=== PATIENT | female | born 1950 | race Caucasian/White ===

== ENCOUNTER 2016-08-14 17:18 | Observation (INO) | payer OTHER ==
[~2016-08-14] VITALS: Ht 165.1 cm; Wt 50.0 kg
--- NOTE | ~2016-08-14 | OP ---
PATIENT NAME: REINA ELIZABETH MEDICAL RECORD: [id number] :54 LOCATION:D.M2 D.2124 ADMISSION DATE:08/14/16 SURGEON: BRYAN DOVE MD DATE OF OPERATION: 08/15/2016 PROCEDURES: Left heart catheterization as well as 4-vessel arteriography. FINDINGS: Left ventriculography 30-degree GOMES view: Normal wall motion, normal systolic function. CORONARY ANATOMY: LEFT MAIN: Left main is free of disease. LAD: LAD is free of disease in the diagonal system. CIRCUMFLEX: Circumflex has diffuse 80% stenosis at the bend of take-off of 2 very small OMs. RIGHT CORONARY ARTERY: Shows no significant stenosis. IMPRESSION: Single-vessel disease involving the circumflex. PLAN: Intervention of this vessel momentarily. DESCRIPTION: A 5-Guamanian sheath was exchanged for a 6-Guamanian sheath. An XB LAD guide catheter provided excellent guide catheter support followed by a 300 cm Brashear XT wire was placed across the tightly occluded circumflex down this portion of this vessel. Initial stent deployed was a 3.0 x 18 Integrity [id number] stent inflated up to 12 atmospheres. Repeat angiography showed a questionable spasm versus residual lesion proximal to the original stent and therefore, a 3.0 x 12 mm Integrity second stent was inflated up to 14 atmospheres for 45 seconds. Final injection shows excellent resolution of an 80% diffuse stenosis, no significant residual. YENNY flow was 3 throughout the procedure. Integrilin was used in the case. Plavix was loaded in the lab. FOUR-VESSEL ARTERIOGRAPHY: LEFT SYSTEM: Left common carotid shows smooth-walled vessel without significant disease. Left internal carotid is smooth-walled vessel without significant disease. Left external carotid is smooth-walled vessel without significant disease. RIGHT SYSTEM: Right common carotid is a smooth-walled vessel, no significant disease. Right internal carotid is smooth-walled vessel, no significant disease. Right external carotid smooth-walled vessel, no significant disease. IMPRESSION: No significant evidence of carotid artery disease causing symptomology. TRANSINT:[id number] Voice Confirmation ID: [id number] DOCUMENT ID: [id number] OPERATIVE REPORT [id number] REINA ELIZABETH BRYAN DOVE MD CC: [id number] DICTATION DATE: 08/15/16 1150 SEAMER OPERATOR: 08/15/16 2215 DIS IN 08/15/[address] [facility] [address] [place] [address]
--- NOTE | ~2016-08-14 | HP ---
PATIENT: REINA ELIZABETH MEDICAL RECORD: [id number] ACCOUNT: [id number] LOCATION:[address] : 54 ADMISSION DATE: 08/14/16 HISTORY AND PHYSICAL EXAMINATION HISTORY OF PRESENT ILLNESS: A 66-year-old lady with known history of coronary artery disease. She has a strong family history of coronary artery disease. Apparent history of dyslipidemia in the past, longstanding smoking history, probable COPD clinically, presented with chest pressure and tightness. Additionally, she had visual change, left arm tingling consistent consistent with amaurosis, symptoms resolved spontaneously then recurreda and she presented in the ER. We are asked to see her concerning her cardiovascular status. PAST MEDICAL HISTORY: History of probable obstructive pulmonary disease and no other major illness. ALLERGIES: None known. SOCIAL HISTORY: No set exercise program. She is physically active, smokes about a pack a day. No illicit drug use. Has been under stress with son being injured in a shooting in July. REVIEW OF SYSTEMS: The patient reports easy bruising but reports no swollen glands. The patient reports no fever, no night sweats, no significant weight gain, no significant weight loss. No significant exercise tolerance. The patient reports no dry eyes, no irritation, no vision change. Patient reports no difficulty hearing and no ear pain. Patient reports no frequent nose bleeds or nose and sinus problems. Patient reports on arm pain on exertion. No shortness of breath while lying down. No history of heart murmur. Patient reports no cough, no wheezing or coughing up blood. Patient reports no abdominal pain, no vomiting. Normal appetite. No diarrhea and not vomiting blood. No nausea and no constipation. Patient reports no incontinence. No difficulty urinating. No hematuria. No increased frequency. Patient reports no muscle aches. No weakness, no arthralgias, no back pain. No swelling of the extremities. Patient reports no abnormal mole, no jaundice, no rashes. Reports no loss of consciousness. No weakness and no numbness. No seizures, dizziness, or headaches. The patient reports no depression, no sleep disturbance, feeling safe in a relationship and no alcohol abuse. Patient reports on fatigue. Reports no runny nose or sinus pressure. No itching, no hives, and no frequent sneezing. PHYSICAL EXAMINATION: GENERAL: Pleasant female in no acute distress, appears stated age. VITAL SIGNS: 119/62, pulse 69 regular. HEENT: Normocephalic, atraumatic. NECK: No bruits noted. HEART: Regular. LUNGS: Lungs russ are clear with prolonged expiratory phase, no active wheezing. ABDOMEN: Soft, nontender. EXTREMITIES: Pulse 2+. There is no edema. NEUROLOGIC: Grossly intact. DIAGNOSTIC DATA: ECG without acute change. HISTORY AND PHYSICAL [id number] REINA ELIZABETH IMPRESSION: Possible transient ischemic attack symptomatology accelerated angina. PLAN: For angiography, intervention based on above. TRANSINT:[id number] Voice Confirmation ID: [id number] DOCUMENT ID: [id number] BRYAN DOVE MD CC: [id number] DICTATION DATE: 08/15/16908 DISTRICT EXTENSION SERVICE AGENT: 08/15/16 1053 ADM [place] [id number] [place] [id number]
--- NOTE | ~2016-08-14 | HEMODYNAMI ---
PATIENT:REINA ELIZABETH MEDICAL RECORD: [id number] : 54 [facility] D.2[id number] ADMISSION DATE: 08/14/16 Generatedon:08/15/201611:42 Patient name: RENIA ELIZABETH Patient #: [id number] SSN: : 1950 Date of study: 08/15/2016 Page: Of Hemodynamic Procedure Report Patient Data Patient Demographics Procedure consent was obtained First Name: REINA Gender: Female Last Name: GLENN : 1950 Middle Initial: M Age: 66 year(s) Patient #: [id number] Race: Unknown Additional ID: [id number] Contact details Address: [address] [place] [address] State: [place] City: [facility] Zip code: [address] Past Medical History Allergies: No known allergies Admission Admission Data Admission Date: 08/14/2016 Admission Time: 19:30 Admit Source: Emergency Insurance Payor: Medicare department Room #: D.2124 Height (in.): 65 BSA: 1.53 (m2) Height (cm.): 165.1 BMI: 18.3 (kg/m2) Weight (lbs.): 110 Weight (kg.): 49.9 Lab Results Lab Result Date: 08/15/2016 Lab Result Time: 0:00 Biochemistry Name Units Result Min Max CK-MB ng/ml 0.6 --(*---)-- 0 3.6 Troponin l ng/ml 0.017 --(-*--)-- 0 0.06 Procedure Procedure Types Cath Procedure Diagnostic Procedure [facility] w/Coronaries PCI Procedure Coronary Stent Initial Miscellaneous Procedures Moderate Sedation up to 30 minutes Peripheral Cath Diagnostic Procedure Cath Peripheral Four Vessel Arteriogram Procedure Description Procedure Date Procedure Date: 08/15/2016 Procedure Start Time: 11:16 Procedure End Time: 11:42 Procedure Staff Name Function Bunny Malin MD Performing Physician Leo Smith RT Scrub Darryl Sheppard RN Nurse Rosita Butler RT Monitor Procedure Data Cath Procedure Fluoroscopy Diagnostic fluoroscopy Total fluoroscopy Time: 5.8 time: 5.8 min min Diagnostic fluoroscopy Total fluoroscopy dose: 393 dose: 393 mGy mGy Contrast Material Contrast Material Type Amount (ml) Isovue 300 160 Entry Location Entry Primary Successful Side Size Upsize Upsize Entry Closure Succes sful Closure Location (Fr) 1 (Fr) 2 (Fr) Remarks Device Remarks Femoral Right 5 Fr 6 Fr Exoseal artery Short Estimated blood loss: 10 ml Diagnostic catheters Device Type Used For End Catheter Placement Cordis 5Fr JL 4.0 Left Coronary Catheter (MP) Angiography Cordis 5Fr 3DRC Catheter Right Coronary (MP) Angiography Cordis 5Fr 3DRC Catheter Cervical carotid (MP) (common) arteriography Cordis 5Fr 3DRC Catheter Cervical carotid (MP) (common) arteriography Cordis 5Fr Pigtail LV Angiography Catheter (MP) Procedure Complications No complications Procedure Medications Medication Administration Route Dosage Oxygen NC 2 l/min Heparin Flush Bag added to field 2 bags (1000units/500ml NS) 0.9% NaCl I.V. 100 ml/hr Fentanyl I.V. 50 mcg Versed I.V. 1 mg Fentanyl I.V. 50 mcg Versed I.V. 1 mg Heparin Bolus I.V. 4000 units Integrilin (Bolus I.V. 4.5 ml 2mg/ml) Integrilin (Bolus wasted 5.5 ml 2mg/ml) Plavix P.O. 600 mg Hemodynamics Rest BSA: 1.53 (m2) HGB: 13.9 (g/dl) O2 Consumption: Estimated: 140.76 (ml/min) O2 Co nsumption indexed: Estimated:92 (ml/min/m) Heart Rate: 66 (bpm) Pressure Samples Time Site Value (mmHg) Purpose Heart Use Rate(bpm) 11:24 LV 111/-9,15 EDP 69 Gradients Valve Time Site Site Mean SEP/DFP Peak To Heart Use 1 2 (mmHg) (sec/min) Peak Rate (mmHg) (bpm) Aortic 11:24 LV AO 72 Snapshots Pre Cath Intra NCS Post Cath Vital Signs Time Heart Resp SPO2 NIBP (mmHg) Rhythm Pain Sedation Rate (ipm) (%) Status Level (bpm) 11:06:35 66 18 99 135/69(115) NSR 0 (11) 10(A) , No pain 11:10:47 64 16 96 116/63(87) NSR 0 (11) 10(A) , No pain 11:14:53 63 18 96 109/63(90) NSR 0 (11) 9(A) , No pain 11:18:57 64 16 97 106/58(83) NSR 0 (11) 9(A) , No pain 11:23:00 65 17 96 94/53(75) NSR 0 (11) 9(A) , No pain 11:26:58 70 17 96 105/63(85) NSR 0 (11) 9(A) , No pain 11:31:04 64 18 96 93/46(76) NSR 0 (11) 9(A) , No pain 11:35:05 65 16 96 105/51(80) NSR 0 (11) 9(A) , No pain 11:39:09 63 17 97 107/50(81) NSR 0 (11) 9(A) , No pain Medications Time Medication Route Dose Verified Delivered Reason Notes Effectiveness by by 11:04:06 Oxygen NC 2 Darryl Darryl Per physician l/min Silver Sheppard RN RN 11:04:15 Heparin Flush added 2 Darryl Darryl used for Bag to bags Silver Sheppard RN procedure (1000units/500ml field RN NS) 11:04:24 0.9% NaCl I.V. 100 Darryl Darryl Per physician ml/hr Silver Sheppard RN RN 11:10:44 Fentanyl I.V. 50 Darryl Darryl for sedation mcg Silver Sheppard RN RN 11:10:52 Versed I.V. 1 mg Darryl Darryl for sedation Silver Sheppard RN RN 11:17:32 Fentanyl I.V. 50 Darryl Darryl for sedation mcg Silver Sheppard RN RN 11:17:39 Versed I.V. 1 mg Darryl Darryl for sedation Silver Sheppard RN RN 11:26:37 Heparin Bolus I.V. 4000 Darryl Darryl for units Silver Sheppard RN anticoagulation RN 11:26:47 Integrilin I.V. 4.5 Darryl Darryl for (Bolus 2mg/ml) ml Silver Sheppard RN antiplatelet RN therapy 11:26:55 Integrilin wasted 5.5 Darryl Darryl for (Bolus 2mg/ml) ml Silver Sheppard RN antiplatelet RN therapy 11:40:42 Plavix P.O. 600 Darryl Andrews for mg Silver Sheppard RN antiplatelet RN therapy Procedure Log Time Note 10:40:29 Darryl Sheppard RN sent for patient. Start room use. 10:49:31 Time tracking: Regular hours 10:49:35 Plan of Care:Hemodynamics will remain stable., Cardiac rhythm will remain stable., Comfort level will be maintained., Respiratory function will remain adequate., Patient/ family verbilizes understanding of procedure., Procedure tolerated without complication., Recovers from procedure without complications.. 10:50:46 Patient Height : 165.1 cm 10:50:49 Patient Weight : 49.9 kg 10:51:04 H&P Date Dictated: 08/15/2016 Within 30 days and on chart.. 10:53:45 Procedure type changed to Cath procedure, Diagnostic procedure, LHC, LHC w/Coronaries, PCI procedure, Coronary Stent Initial, Miscellaneous Procedures, Moderate Sedation up to 30 minutes, Peripheral Cath Diagnostic Procedure, Cath Peripheral, Four Vessel Arteriogram 10:54:12 Admit Source: Emergency department 10:54:26 Insurance Payor : Medicare 10:56:52 Patient received from PCU to CCL 2 Alert and oriented. Tansferred to table in Supine position. 10:56:53 Warm blankets applied, and cynthia hugger turned on for patient comfort. 10:56:54 Correct patient and procedure confirmed by team. 10:56:55 Signed procedure consent form obtained from patient. 10:56:56 ECG and BP/O2 sat monitors applied to patient. 10:56:57 Full Disclosure recording started 11:04:06 Oxygen 2 l/min NC was administered by Darryl Sheppard RN; Per physician; 11:04:15 Heparin Flush Bag (1000units/500ml NS) 2 bags added to field was administered by Darryl Sheppard RN; used for procedure; 11:04:24 0.9% NaCl 100 ml/hr I.V. was administered by Darryl Sheppard RN; Per physician; 11:04:28 Vital chart was started 11:04:32 Rhythm: sinus rhythm 11:04:35 Pre-procedure instructions explained to patient. 11:04:36 Pre-op teaching completed and patient verbalized understanding. 11:04:40 Family in patients room. 11:04:41 Patient NPO since Midnight. 11:05:22 Patient allergic to No known allergies 11:05:25 Is the patient allergic to Iodine/contrast media? No. 11:05:27 Is patient on blood thinner?No 11:05:30 Patient diabetic? No. 11:05:44 Previous problem with sedation/anesthesia? No ? 11:05:46 Snore? No 11:05:48 Sleep apnea? No 11:05:49 Deviated septum? No 11:05:50 Opens mouth fully? Yes 11:05:51 Sticks out tongue? Yes 11:05:53 Airway obstruction? No ? 11:05:55 Dentures? No ? 11:05:58 Pre procedure: right dorsailis pedis pulse 2+ Normal; easily identifiable; not easily obliterated 11:06:00 Patient pain scale 0/10 ?. 11:06:13 IV patent on arrival in left forearm with 0.9% NaCl at O. 11:07:02 Lab Result : Creatinine 0.7 mg/dl 11:07:02 Lab Result : Hemoglobin 13.9 g/dl 11:07:58 Lab Result : CK-MB 0.6 ng/ml 11:07:58 Lab Result : Troponin l 0.017 ng/ml 11:08:01 Lab results completed and on chart. 11:08:04 Right groin area was prepped with chlora-prep and draped in sterile fashion 11:08:05 Alarms reviewed by R. N. 11:08:05 Sharps counted by scrub and verified by R.N. 11:08:08 Use device set Femoral Dx 11:08:09 Acist Syringe opened to sterile field. 11:08:09 Bag Decanter opened to sterile field. 11:08:10 Medline Cath Pack opened to sterile field. 11:08:11 Terumo 5Fr Speer Sheath opened to sterile field. 11:08:11 St Osvaldo 260cm J .035 wire opened to sterile field. 11:08:12 Acist Hand Control opened to sterile field. 11:08:12 Acist Manifold opened to sterile field. 11:08:13 Diagnostic Infinity 5Fr Multipack catheter opened to sterile field. 11:08:13 Tegaderm 4 x 4 opened to sterile field. 11:09:43 Baseline sample Acquired. 11:09:58 Final Timeout: patient, procedure, and site verified with staff and physician. All members of the team are in agreement. 11:10:00 Right groin site verified by team. 11:10:03 Physical assessment completed. ASA score P 2 - A patient with mild systemic disease as per Bunny Malin MD. 11:10:06 Sedation plan: IV Moderate Sedation Versed, Fentanyl 11:10:44 Fentanyl 50 mcg I.V. was administered by Darryl Sheppard RN; for sedation; 11:10:52 Versed 1 mg I.V. was administered by Darryl Sheppard RN; for sedation; 11:16:43 Procedure started. 11:16:47 Local anesthetic to right femoral artery with Lidocaine 2% by Bunny Malin MD.INITIAL ACCESS ONLY 11:16:54 Zero performed for pressure channel P1 11:17:09 A 5 Fr sheath was inserted into the Right Femoral artery 11:17:16 A Cordis 5Fr JL 4.0 Catheter (MP) was advanced over the wire and used for Left Coronary Angiography. 11:17:32 Fentanyl 50 mcg I.V. was administered by Darryl Sheppard RN; for sedation; 11:17:39 Versed 1 mg I.V. was administered by Darryl Sheppard RN; for sedation; 11:19:37 Catheter removed. 11:20:20 A Cordis 5Fr 3DRC Catheter (MP) was advanced over the wire and used for Right Coronary Angiography. 11:21:27 A Cordis 5Fr 3DRC Catheter (MP) was advanced over the wire and used for Cervical carotid (common) arteriography.Left 11:22:34 A Cordis 5Fr 3DRC Catheter (MP) was advanced over the wire and used for Cervical carotid (common) arteriography.Right 11:22:40 Catheter removed. 11:22:50 A Cordis 5Fr Pigtail Catheter (MP) was advanced over the wire and used for LV Angiography. 11:24:17 LV gram done using GOMES 11:24:56 Injector settings: Ml/sec: 10, Volume: 20, 11:24:57 LV hemodynamics recorded. 11:24:59 Catheter removed. 11:25:09 Sheath upsized to a 6 Fr Short. 11:26:03 Sobresalen BasixCompak Inflation Kit opened to sterile field. 11:26:06 Joaquin Kabetogama 300cm 0.014 guide wire opened to sterile field. 11:26:07 Terumo 6Fr Speer Sheath opened to sterile field. 11:26:08 Medtronic Launcher 6Fr EBU 3.5 guide catheter opened to sterile field. 11:26:37 Heparin Bolus 4000 units I.V. was administered by Darryl Sheppard RN; for anticoagulation; 11:26:47 Integrilin (Bolus 2mg/ml) 4.5 ml I.V. was administered by Darryl Sheppard RN; for antiplatelet therapy; 11:26:55 Integrilin (Bolus 2mg/ml) 5.5 ml wasted was administered by Darryl Sheppard RN; for antiplatelet therapy; 11:27:05 6 Fr EBU 3.5 guide catheter was inserted over the wire 11:28:54 Kabetogama wire advanced. 11:31:50 Inflation Number: 1 A Medtronic Integrity 3.0 X 18 stent was prepped and advanced across the Mid CX. The stent was deployed at 12 TOPHER for 0:32 (min:sec). 11:33:30 Stent catheter was removed intact over wire. 11:36:58 Inflation Number: 2 A Medtronic Integrity 3.0 X 12 stent was prepped and advanced across the Mid CX. The stent was deployed at 14 TOPHER for 0:27 (min:sec). 11:37:28 Stent catheter was removed intact over wire. 11:37:28 Wire removed. 11:37:29 Guide catheter removed. 11:37:39 Sheath removed intact; hemostasis achieved with Exoseal to the Right Femoral artery. 11:37:47 Cordis 6Fr Exoseal opened to sterile field. 11:37:49 Procedure ended.(Physican Out) 11:38:04 Fluoroscopy time 05.80 minutes. 11:38:13 Fluoroscopy dose: 393 mGy 11:38:13 Flurop Dose total: 393 11:38:23 Contrast amount:Isovue 300 160ml. 11:38:24 Sharps counted by scrub and verified by R.N. 11:38:25 Insertion/operative site no bleeding no hematoma. 11:38:28 Post-op/insertion site Right Femoral artery dressed using a 4 x 4 and Tegaderm. 11:38:32 Post right femoral artery:stable, clean and dry 11:38:34 Post Procedure Pulses reassessed and unchanged 11:38:36 Post-procedure physical assessment completed. ASA score P 2 - A patient with mild systemic disease as per Bunny Malin MD. 11:38:39 Post procedure rhythm: unchanged. 11:38:42 Estimated blood loss: 10 ml 11:38:43 Post procedure instruction explained to patient.Patient verbalizes understanding. 11:38:43 Patient needs reinforcement of post procedure teaching. 11:39:15 Procedure Complication : No complications 11:39:18 See physician's report for complete and final results. 11:40:42 Plavix 600 mg P.O. was administered by Darryl Sheppard RN; for antiplatelet therapy; 11:41:53 Procedure and supply charges have been captured, reviewed, submitted and are correct. 11:41:55 Vital chart was stopped 11:41:56 Report given to PCU. 11:42:01 Patient transfered to PCU with Bed. 11:42:25 Procedure ended. 11:42:25 Full Disclosure recording stopped 11:42:30 End room use (Document Last) Intervention Summary Intervention Notes Time ActionType Lesion and Equipment Action# Pressure Duration Attributes Used 11:31:50 Place stent Mid CX Medtronic 1 12 00:32 Integrity 3.0 X 18 stent 11:36:58 Place stent Mid CX Medtronic 2 14 00:28 Integrity 3.0 X 12 stent Device Usage Item Name Manufacture Quantity Catalog Hospital Part Current Minimal Lot# / Number Charge Number Stock Stock Serial# Code Acist Acist 1 24931 268138 924563 057764 20 Syringe Medical Systems Inc Bag Microtek 1 2002S 679943 89769 401510 5 [employer] Medline Cardinal 1 [id number] 578982 63747 392500 5 Cath Pack Health Terumo 5Fr Terumo 1 [id number] 360112 645759 203414 [address] Osvaldo 1 377371 198097 458778 401520 30 260cm J .035 wire Acist Hand Acist 1 82879 008301 696322 188699 5 Control Medical Systems Inc Acist Acist 1 76824 350908 734100 526150 5 Manifold Medical Systems Inc Diagnostic Cardinal 1 [id number] 474954 90474 715325 30 Systancia 5Fr Multipack catheter Tegaderm 4 3M 1 1626W 957544 868004 167529 5 x 4 Cordis 5Fr Cardinal 1 771894 5 JL 4.0 Health Catheter (MP) Cordis 5Fr Cardinal 1 994983 5 3DRC Health Catheter (MP) Cordis 5Fr Cardinal 1 218158 5 Pigtail Health Catheter (MP) [facility] 1 [id number] 089954 013043 539644 15 BasixCompak Medical Inflation Kit Joaquin Joaquin 1 [id number] 100490 862574 717327 1 Kabetogama Vascular 300cm 0.014 guide wire Terumo 6Fr Terumo 1 [id number] 245281 499194 124788 40 Speer Sheath Medtronic Medtronic 1 [id number] 578774 98474 167849 3 Launcher 6Fr EBU 3.5 guide catheter Medtronic Medtronic 1 [id number] 820798 118569 1 [id number] Integrity 3.0 X 18 stent Medtronic Medtronic 1 [id number] 289767 529248 3 [id number] Integrity 3.0 X 12 stent Cordis 6Fr Cardinal 1 [id number] 613424 040283 041677 10 [facility] Cosyforyou Signature Audit Palmer Stage Time Signature Unsigned Intra-Procedure 08/15/2016 Rosita 11:42:43 AM Counts RT(R) Signatures Monitor : Rosita Signature : Counts RT Date : Time : [place] [address] [place] [address]
[2016-08-14 18:14] LABS: BASOPHILS 0.3 % (0-2); HEMATOCRIT 41.8 % (36.0-48.0); HEMOGLOBIN 13.9 g/dL (12-16); IMMATURE GRANULOCYTES 0.2 % (0-5); LYMPHOCYTES 25.8 % (15-50); MCH 31.4 pg (26.0-34.0); MCHC 33.3 g/dL (31.0-37.0); MCV 94.4 fL (80.0-100.0); MEAN PLATELET VOLUME 9.9 fL (7.4-10.4); MONOCYTES 8.2 % (2-11); NEUTROPHILS 64.5 % (40-80); PLATELET COUNT 267 10x3/uL (130-400); RBC 4.43 10x6/uL (4.00-5.40); WBC 10.1 10x3/uL (4.8-10.8)
[2016-08-14 18:30] LABS: ALBUMIN 3.7 g/dL (3.4-5.0); ALKALINE PHOSPHATASE 88 U/L (46-116); ALT (SGPT) 17 U/L (10-68); BILIRUBIN - TOTAL 0.24 mg/dL (0.2-1.3); CALC OSMOLALITY 282 mosm/kg (275-300); CALCIUM 8.6 mg/dL (8.5-10.1); CARBON DIOXIDE 26.6 mmol/L (21.0-32.0); CHLORIDE - SERUM 107 mmol/L (98-107); CREATININE - SERUM 0.7 mg/dL (0.6-1.3); GLUCOSE 122 mg/dL (74-106); POTASSIUM - SERUM 3.5 mmol/L (3.5-5.1); PROTEIN - SERUM 7.3 g/dL (6.4-8.2); SODIUM 142 mmol/L (136-145); UREA NITROGEN 10 mg/dL (7-18); eGFR NON AFRICAN AMERICAN 89 mL/min (90-120)
[2016-08-14 18:41] LABS: CKMB 0.7 U/L (0.0-3.6); CREATINE KINASE 52 UL (21-215)
[2016-08-14 18:43] LABS: TROPONIN-I < 0.017 ng/mL (0.000-0.060)
--- NOTE | 2016-08-14 20:44 | NUR ---
RECIEVED TO ROOM 2123 FROM ER VIA . A&O, RESPERATIONS EVEN ON RA. PLACED ON TELEMETRY, 76 SR. IV TO LEFT HAND SL, SITE CLEAN AND DRY. PT C/O HEAD ACHE, INFORMED HER THAT I WILL HAVE TO CALL THE PHYSICIAN TO GET PAIN MEDS ORDERED. PAGE OUT TO DR DOVE. MULTIPLE FAMILY MEMEBERS AT BED SIDE, BED LOW, CL IN REACH.
[2016-08-14 21:17] VITALS: Ht 165.1 cm; Wt 50.0 kg
--- NOTE | 2016-08-14 21:21 | NUR ---
OFFERED PT NICOTINE PATCH, INFORMED HER THAT A 21 MG PATCH WAS ORERED IF SHE NEEDED IT, PT STATED THAT, 21 MG IS TOO STRONG, PT C/O HEADACHE, TRIED TO GIVE PT A NORCO 5/325 MG TAB, PT REFUSED AFTER MEDICATION WAS OPENEND STATED THAT SHE JUST WANTS AN ASPIRIN OR TYLENOL. NORCO WASTED IN SHARPS CONTAINER. NS INFUSING TO LEFT HAND AT 75 CC/HR. PLACED A 7 MG NICOTINE PATCH TO LEFT SHOULDER AND GAVE 650 MG TYLENOL FOR C/O HEADACHE. JESSICA TRAY GIVEN AND SLEEPER CHAIR TAKEN TO ROOM FOR PTS SISTER TO STAY THE NIGHT. WILL CONT TO MONITOR.
[2016-08-14 21:46] VITALS: BP 143/77; BP 143/88
[2016-08-14 22:56] LABS: CKMB 0.6 U/L (0.0-3.6); CREATINE KINASE 45 UL (21-215)
[2016-08-14 22:57] LABS: TROPONIN-I < 0.017 ng/mL (0.000-0.060)
[2016-08-15 01:37] VITALS: BP 102/43
[2016-08-15 05:32] VITALS: BP 114/56
[2016-08-15 06:50] LABS: CKMB 0.4 U/L (0.0-3.6); CREATINE KINASE 42 UL (21-215)
[2016-08-15 06:51] LABS: TROPONIN-I < 0.017 ng/mL (0.000-0.060)
--- NOTE | 2016-08-15 07:13 | NUR ---
PT LAYING TO LEFT SIDE SLEEPING NO S/S DISTRESS NOTED RR EVEN AND UNLABORED WILL CONT TO MONITOR
[2016-08-15 08:15] VITALS: BP 119/62
--- NOTE | 2016-08-15 08:58 | NUR ---
WENT OVER TEACHING FOR ANGIOGRAM WITH PT. CONSENTS ARE SINGED AND ON THE CHART.
[2016-08-15 09:14] LABS: BASOPHILS 0.5 % (0-2); EOSINOPHILS 1.8 % (0-7); HEMATOCRIT 39.3 % (36.0-48.0); HEMOGLOBIN 13.1 g/dL (12-16); IMMATURE GRANULOCYTES 0.2 % (0-5); LYMPHOCYTES 43.6 % (15-50); MCH 31.9 pg (26.0-34.0); MCHC 33.3 g/dL (31.0-37.0); MCV 95.6 fL (80.0-100.0); MEAN PLATELET VOLUME 10.9 fL (7.4-10.4); NEUTROPHILS 44.9 % (40-80); PLATELET COUNT 278 10x3/uL (130-400); RBC 4.11 10x6/uL (4.00-5.40); RDW 14.3 % (11.5-14.5); WBC 9.6 10x3/uL (4.8-10.8)
[2016-08-15 09:19] LABS: CALC OSMOLALITY 286 mosm/kg (275-300); CALCIUM 8.5 mg/dL (8.5-10.1); CARBON DIOXIDE 22.6 mmol/L (21.0-32.0); CHLORIDE - SERUM 109 mmol/L (98-107); CREATININE - SERUM 0.8 mg/dL (0.6-1.3); GLUCOSE 92 mg/dL (74-106); POTASSIUM - SERUM 3.6 mmol/L (3.5-5.1); SODIUM 143 mmol/L (136-145); eGFR NON AFRICAN AMERICAN 76 mL/min (90-120)
[2016-08-15 09:21] LABS: UREA NITROGEN 17 mg/dL (7-18)
--- NOTE | 2016-08-15 10:57 | NUR ---
SEVERAL FAMILY MEMBERS AT BEDSIDE. GIVEN ADDITIONAL EDUCATION ABOUT HEART CATH. PREOPED PT FOR HEART CATH AT THIS TIME, HELPED PT TO VOID AT THIS TIME. WILL CONT TO MONITOR
--- NOTE | 2016-08-15 12:08 | NUR ---
PT BACK FROM PORTFOLIO ACCOUNTANT. VS ARE WNL. PT LETHARGIC BUT ARROUSES EASILY. IV FLUIDS INFUSING TO LEFT WRIST NO PROBLEMS. R GROIN SITE IS NOTED WITH BLACK PEPE AROUND EDGES. SITE IS SOFT TO TOUCH AND NO S/S BLEEDING. WILL CNT TO MONITOR
--- NOTE | 2016-08-15 12:37 | NUR ---
PT STILL LAYING FLAT VS ARE STILL WNL. R [facility] SITE STILL WNL.
--- NOTE | 2016-08-15 13:52 | NUR ---
PT STILL LETHARGIC BUT ARROUSES EASILY VS ARE STILL WNL. R GROIN SITE STILL WNL WILL CONT TO MONITOR. SISTER AT BEDSIDE
[2016-08-15] MEDS ORDERED: PLAVIX75 MG PO (14:34)
[2016-08-15] MEDS ORDERED: ASPIRIN81 MG PO (14:34)
--- NOTE | 2016-08-15 16:09 | NUR ---
WENT OVER DC PAPERWORK WITH PT PT VERBALIZES UNDERSTANDING. DC PIV WITH CATH TIP INTACT. DC TELE AND RETURNED TO SAP TECHNICAL DEVELOPER. PT GIVEN SCRIPT FOR PLAVIX AND STENT CARDS. PT R GROIN SITE IS STILL WNL AND VS ARE STILL WNL. PT WAS WHEELED OUT VIA WHEELCHAIR BY LYUDMILA.
[2016-08-15 16:12] VITALS: BP 111/60
== END 2016-08-15 16:12 | disposition home or self-care (01) ==
LOC: D.ER 17:18 → D.M2 19:30 → OBSVTIME 19:30 → D.M2 08-15 16:12
PROVIDERS: Emergency Medicine; ADMIT Internal Medicine Interventional Cardiology
DX: I25.10 Atherosclerotic heart disease of native coronary artery without angina pectoris (principal); H53.9 Unspecified visual disturbance; R20.2 Paresthesia of skin; E78.5 Hyperlipidemia, unspecified; J44.9 Chronic obstructive pulmonary disease, unspecified; Z72.0 Tobacco use

== ENCOUNTER → 2018-10-15 09:55 | Outpatient (CLI) | payer MEDICARE ==
[2016-08-14 21:17] VITALS: BMI 18.3
[~2018-10-15 09:55] MED LIST: ASPIRIN81 MG PO; PLAVIX75 MG PO
--- NOTE | 2018-10-17 13:11 | EC ---
PATIENT:REINA ELIZABETH DATE OF SERVICE: 10/15/18 SEX: F MEDICAL RECORD: [id number] DATE OF : [birth year] [facility] AGE OF PATIENT: 68 ADMISSION DATE: 10/15/18 REFERRING PHYSICIAN: INTERPRETING PHYSICIAN: BRYAN DOVE MD ECHOCARDIOGRAM REPORT ECHO CHARGES 4 ECHO COMPLETE Date: 10/15/18 CLINICAL DIAGNOSIS: ARBOLEDA H/O CAD ECHOCARDIOGRAPHIC MEASUREMENTS (adult normal given) AC root (d.<3.7cm) 2.1 cm LV Septum d (<1.2 cm> 0.9 cm Valve Excursion 1.6 cm LV Septum (systole) 1.2 cm Left Atria (s.<4.0cm> 3.3 cm LVPW d(<1.2cm) 1.1 cm RV (d.<2.3cm) 2.7 cm LVPW (sytole) 1.5 cm LV diastole(<5.6CM) 4.7 cm MV E-F(>70mm/sec) cm LV systole 3.1 cm LVOT Diameter 1.7 cm MV exc.(>10mm) cm Est.ejection fraction (50-75%) % DOPPLER: LVIT cm/sec A 108 cm/sec E 82.0 cm/sec LA cm/sec RVSP 27.0 mmHg LVOT 98.0 cm/sec AOP1/2T m/s Asc. Ao 133 cm/sec RVOT 78.0 cm/sec RA cm/sec PA 115 cm/sec AV Gradient Peak 7.1 mmHg AV Mean 4.2 mmHg AV Area 1.4 cm MV Gradient Peak 6.6 mmHg MV Mean 2.4 mmHg MV Area cm COMMENTS: OP - HC Plasterer Stucco: Sandra ELENA YOLANDA Video Presentation Operator: 3 Dr. Malin TAPE# PACS Pericardial Effusion N DATE OF SERVICE: 10/15/2018 Adequate 2-D echo, color-flow and spectral Doppler, and M-mode. No LVH. LV internal dimensions are normal. Wall motion is normal. EF is greater than or equal to 55%. Aortic valve sclerosis without stenosis by Doppler interrogation. Left atrium is normal at 3.3 cm. Mitral valve shows no prolapse. Trace MR. Right-sided chambers are grossly normal. Trace TR. TRANSINT:[id number] Voice Confirmation ID: [id number] DOCUMENT ID: [id number] ECHOCARDIOGRAM REPORT [id number] REINA ELIZABETH,BRYAN Carranza MD at 1311 CC: [id number] DICTATION DATE: 10/15/18 151 MAINTENANCE SERVICE DISPATCHER: 10/15/[id number] DEP CLI 10/15/18 [id number] [place] [address]
== END | disposition home or self-care (01) ==
LOC: D.HCCARDIO 09:55
PROVIDERS: ATTEND Internal Medicine Interventional Cardiology
DX: R06.00 Dyspnea, unspecified (principal); I25.10 Atherosclerotic heart disease of native coronary artery without angina pectoris

== ENCOUNTER → 2019-02-21 08:33 | Outpatient (CLI) | payer MEDICARE ==
[2016-08-14 21:17] VITALS: BMI 18.3
--- NOTE | ~2019-02-21 | ST ---
PATIENT:REINA ELIZABETH MEDICAL RECORD: [id number] SEX: F LOCATION:[facility] ORDER #: ADMISSION DATE: 02/21/19 AGE OF PATIENT: 68 REFERRING PHYSICIAN: INTERPRETING PHYSICIAN: LAZARO PHELPS MD DATE OF SERVICE: 02/21/2019 Nuclear Stress Test INDICATIONS: Angina and coronary artery disease and hyperlipidemia. She exercised on standard Lele protocol for 5 minutes achieving 85% max target heart rate response with 33 mCi of sestamibi injected at peak stress, 11 mCi were used previously for rest images. FINDINGS: Gated SPECT reveals preserved ejection fraction at 78% with good wall motioning and thickening and brightening throughout all segments. SPECT Imaging: Cardiolite was used as myocardial perfusion agent. There is reversibility inferiorly and apically. This includes the basal, mid, apical, inferior segments, the apex itself even extending into the anterior apex. The degree of reversibility is moderate. The amount of myocardium involved is moderate to large. OVERALL IMPRESSION: This is an intermediate to high risk nuclear stress test with a [id number] amount of myocardium involved with reversible ischemia inferiorly and apically suggestive of hemodynamically significant coronary artery disease. TRANSINT:[id number] Voice Confirmation ID: [id number] DOCUMENT ID: [id number] LAZARO PHELPS MD CC: GURDEEP VENTURA MD [id number] DICTATION DATE: 02/24/19 1043 ACADEMY DIRECTOR: 02/25/19 0331 DEP CLI 02/21/19 [facility] [address] [place] [address]
--- NOTE | 2019-02-25 13:07 | EC ---
PATIENT:REINA ELIZABETH DATE OF SERVICE: 02/21/19 SEX: F MEDICAL RECORD: [id number] DATE OF : 54 [facility] AGE OF PATIENT: 68 ADMISSION DATE: 02/21/19 REFERRING PHYSICIAN: INTERPRETING PHYSICIAN: BRYAN DOVE MD ECHOCARDIOGRAM REPORT ECHO CHARGES 4 ECHO COMPLETE Date: 02/21/19 CLINICAL DIAGNOSIS: ANGINA/MURMUR H/O CAD ECHOCARDIOGRAPHIC MEASUREMENTS (adult normal given) AC root (d.<3.7cm) 2.6 cm LV Septum d (<1.2 cm> 0.7 cm Valve Excursion 1.5 cm LV Septum (systole) 1.3 cm Left Atria (s.<4.0cm> 3.3 cm LVPW d(<1.2cm) 0.9 cm RV (d.<2.3cm) 1.8 cm LVPW (sytole) 1.1 cm LV diastole(<5.6CM) 4.5 cm MV E-F(>70mm/sec) cm LV systole 3.1 cm LVOT Diameter 1.5 cm MV exc.(>10mm) cm Est.ejection fraction (50-75%) % DOPPLER: LVIT cm/sec A 115 cm/sec E 73.0 cm/sec LA cm/sec RVSP 42.3 mmHg LVOT 107 cm/sec AOP1/2T m/s Asc. Ao 124 cm/sec RVOT 76.0 cm/sec RA cm/sec PA 106 cm/sec AV Gradient Peak 6.2 mmHg AV Mean 3.4 mmHg AV Area 1.4 cm MV Gradient Peak 5.9 mmHg MV Mean 2.1 mmHg MV Area cm COMMENTS: OP - HC Electrical Manufacturing Engineer: 1 KASSY YOLANDA Team Coordinator: 3 Dr. Malin TAPE# PACS Pericardial Effusion N DATE OF SERVICE: Adequate 2-D, color-flow and spectral Doppler, and M-mode. No LVH. LV internal dimension is normal. Wall motion is normal. EF is greater than or equal to 55%. Aortic valve is tricuspid. No evidence of stenosis by Doppler interrogation. Left atrium is normal at 3.3 cm. Mitral valve shows no prolapse. Mild MR. Right-sided chambers are grossly normal. Trace TR. TRANSINT:[id number] Voice Confirmation ID: [id number] DOCUMENT ID: [id number] ECHOCARDIOGRAM REPORT [id number] REINA ELIZABETH,BRYAN Carranza MD at 1307 CC: [id number] DICTATION DATE: 02/22/19 110 LICENSED INSURANCE AGENT: 02/22/19 1335 DEP CLI 02/21/19 [id number] [place] [address]
== END | disposition home or self-care (01) ==
LOC: D.HCCECHO 08:33
PROVIDERS: ATTEND Internal Medicine Interventional Cardiology
DX: I25.119 Atherosclerotic heart disease of native coronary artery with unspecified angina pectoris (principal)

== ENCOUNTER 2019-03-06 10:51 | Outpatient (CLI) | payer MEDICARE ==
[~2019-03-06] VITALS: Ht 165.1 cm; Wt 47.7 kg
--- NOTE | ~2019-03-06 | HEMODYNAMI ---
PATIENT:REINA ELIZABETH MEDICAL RECORD: [id number] : 54 LOCATION:[facility] ADMISSION DATE: 03/06/19 Generatedon:03/06/201913:21 Patient name: REINA ELIZABETH Patient #: [id number] : 1950 Date of study: 03/06/2019 Page: Of Hemodynamic Procedure Report Patient Data Patient Demographics Procedure consent was obtained First Name: REINA Gender: Female Last Name: GLENN : 1950 Middle Initial: LUIS ALBERTO Age: 68 year(s) Patient #: [id number] Race: Unknown SSN: [id number] Additional ID: [id number] Contact details Address: [address] State: [place] City: [facility] Zip code: [address] Past Medical History Allergies: No known allergies Admission Admission Data Admission Date: 03/06/2019 Admission Time: 10:51 Arrival Date: 03/06/2019 Arrival Time: 0:00 Admit Source: Other Insurance Payor: Private health insurance [facility] #: [id number] Height (in.): 64.96 BSA: 1.5 (m2) Height (cm.): 165 BMI: 17.26 (kg/m2) Weight (lbs.): 103.62 Weight (kg.): 47 Lab Results Lab Result Date: 03/06/2019 Lab Result Time: 0:00 Biochemistry Name Units Result Min Max BUN mg/dl 15 --(--*-)-- 7 18 Creatinine mg/dl 0.8 --(-*--)-- 0.6 1.3 eGFR ml/min 76.73620 *-(----)-- 90 120 NONAFRICAN CBC Name Units Result Min Max Hemoglobin g/dl 15.5 --(-*--)-- 13.5 17.5 Procedure Procedure Types Cath Procedure Diagnostic Procedure LHC [facility] w/Coronaries Sedation Charges Moderate Sedation up to 30 minutes PCI Procedure Coronary Stent Coronary Stent Initial Hemochron ACT Test Procedure Description Procedure Date Procedure Date: 03/06/2019 Procedure Start Time: 12:56 Procedure End Time: 13:17 Procedure Staff Name Function Bunny Casillas MD Performing Physician Bianca Raymond RT Monitor Lucien Stout RN Nurse Florence Dash RT Scrub Indication Angina Procedure Data Cath Procedure Fluoroscopy Diagnostic fluoroscopy Total fluoroscopy Time: 4.7 time: 4.7 min min Diagnostic fluoroscopy Total fluoroscopy dose: 277 dose: 277 mGy mGy Contrast Material Contrast Material Type Amount (ml) Isovue 300 95 Entry Location Entry Primary Successful Side Size Upsize Upsize Entry Closure [place] ccessful Closure Location (Fr) 1 (Fr) 2 (Fr) Remarks Device Remarks Radial Right 6 Fr Mechanical artery Short Compression Estimated blood loss: 5 ml Diagnostic catheters Device Type Used For End Catheter Placement DIAGNOSTIC [place] 110cm 5 Procedure Fr catheter ([id number]) Procedure Complications No complications Procedure Medications Medication Administration Route Dosage Oxygen etCO2 Nasal cannula 2 l/min Lidocaine 2% added to field 20 Heparin Flush Bag added to field 2 bags (1000units/500ml NS) 0.9% NaCl I.V. 100 ml/hr Radial Cocktail I.A. 1 syringe (Verapamil 2mg/Nitro 400mcg/Heparin 1500units) Versed I.V. 1 mg Fentanyl I.V. 50 mcg Versed I.V. 1 mg Fentanyl I.V. 50 mcg Versed I.V. 1 mg Heparin Bolus I.V. 4000 units Integrilin (Bolus I.V. 4.5 ml 2mg/ml) Versed I.V. 1 mg Fentanyl I.V. 50 mcg Fentanyl I.V. 50 mcg Plavix P.O. 600 mg Hemodynamics Rest BSA: 1.5 (m2) HGB: 15.5 (g/dl) O2 Consumption: Estimated: 146.08 (ml/min) O2 Con sumption indexed: Estimated:97.39 (ml/min/m) Heart Rate: 81 (bpm) Pressure Samples Time Site Value (mmHg) Purpose Heart Use Rate(bpm) 13:00 LV 85/-9,2 Snapshot 78 13:00 AO 74/43(58) Pullback 77 Gradients Valve Time Site Site 2 Mean SEP/DFP Peak To Heart Use 1 (mmHg) (sec/min) Peak Rate (mmHg) (bpm) Aortic 13:00 LV AO 12 15 77 74/43(58) Calculations Valve P-P Mean Valve Index Valve Source Name Gradient Area Flow (cm2) Aortic 12 12 Snapshots Pre Cath Intra NCS Post Cath Vital Signs Time Heart Resp SPO2 etCO2 NIBP (mmHg) Rhythm Pain Sedation Rate (ipm) (%) (mmHg) Status Level (bpm) 12:43:16 79 18 96 9.7 129/73(99) NSR 0 (11) 10(A) , No pain 12:47:26 78 17 96 27.7 132/71(105) NSR 0 (11) 10(A) , No pain 12:51:38 80 17 95 31.5 111/65(88) NSR 0 (11) 10(A) , No pain 12:55:46 75 12 94 34.5 108/56(81) NSR 0 (11) 9(A) , No pain 12:59:53 74 13 96 47.3 72/52(60) NSR 0 (11) 9(A) , No pain 13:04:44 76 12 95 42.8 93/53(73) NSR 0 (11) 9(A) , No pain 13:08:44 80 12 93 48 107/60(82) NSR 0 (11) 9(A) , No pain 13:12:52 78 12 94 48.7 100/52(80) NSR 0 (11) 9(A) , No pain 13:16:57 78 12 95 43.5 101/50(74) NSR 0 (11) 10(A) , No pain Medications Time Medication Route Dose Verified Delivered Reason Not es Effectiveness by by 12:43:38 Oxygen etCO2 2 l/min Bunny Mcgraw used for Nasal St Sherif Stout RN procedure cannula 12:43:45 Lidocaine 2% added 20ml Bunny Hollis for local to vial [facility] anesthetic field MD BASSETT 12:43:53 Heparin Flush added 2 bags Bunny Hollis used for Bag to [facility] procedure (1000units/500ml field MD BASSETT NS) 12:44:02 0.9% NaCl I.V. 100 Bunny Mcgraw Per physician ml/hr St Sherif Stout RN, MD 12:44:14 Radial Cocktail I.A. 1 Bunny Hollis for (Verapamil syringe [facility] vasodilation 2mg/Nitro MD BASSETT 400mcg/Heparin 1500units) 12:44:23 Versed I.V. 1 mg Bunny Buffie for sedation St Sherif Stout RN, MD 12:44:28 Fentanyl I.V. 50 mcg Bunny Buffie for sedation St Sherif Stout RN, MD 12:48:31 Versed I.V. 1 mg Bunny Buffie for sedation St Sherif Stout RN, MD 12:48:35 Fentanyl I.V. 50 mcg Bunny Buffie for sedation St Sherif Stout RN, MD 12:51:15 Versed I.V. 1 mg Bunny Buffie for sedation St Sherif Stout RN, MD 12:51:24 Fentanyl I.V. 50 mcg Bunny Buffie for sedation St Sherif Stout RN, MD 13:04:31 Heparin Bolus I.V. 4000 Bunny Buffie for landen ified units St Sherif Stout RN anticoagulation with dr MD galdamez 13:06:26 Integrilin I.V. 4.5 ml Bunny Buffie for was patricio (Bolus 2mg/ml) St Sherif Stout RN antiplatelet 5.5 ml MD therapy of vial 13:07:19 Versed I.V. 1 mg Bunny Buffie for sedation St Sherif Stout RN, MD 13:07:23 Fentanyl I.V. 50 mcg Bunny Buffie for sedation St Sherif Stout RN, MD 13:17:17 Plavix P.O. 600 mg Bunny Buffie for St Sherif Stout RN antiplatelet therapy Procedure Log Time Note 12:08:28 Admit Source: Other 12:08:30 Arrival Date: 03/06/2019 12:00:00 AM 12:08:57 Insurance Payor : Private health insurance 12:09:03 Patient Height : 64.96 inches 12:09:06 Patient Weight : 103.62 lbs 12:09:49 Lab Result : Hemoglobin 15.5 g/dl 12:09:49 Lab Result : eGFR NONAFRICAN 76.75508 ml/min 12:09:49 Lab Result : BUN 15 mg/dl 12:09:49 Lab Result : Creatinine 0.8 mg/dl 12:09:56 Diagnostic Cath Status : Elective 12:10:50 Indication : Angina 12:11:13 2) 60-89 Mildly reduced kidney function, and other findings (as for stage 1) point to kidney disease. 12:11:27 Maximum allowable contrast dose (3.7 X eGFR X 0.75)210 ml. 12:14:23 Risk of Mortality: .1 12:14:26 Risk of blood transfusion: 2.5 12:14:30 Risk of HALLIE: 1.4 12:26:56 Procedure Status Elective Heart Cath (OP). 12:26:58 Lucien Stout RN sent for patient. Start room use. 12:27:06 Time tracking: Regular hours (M-F 7:00 - 5:00) 12:27:13 Plan of Care:Hemodynamics will remain stable., Cardiac rhythm will remain stable., Comfort level will be maintained., Respiratory function will remain adequate., Patient/ family verbilizes understanding of procedure., Procedure tolerated without complication., Recovers from procedure without complications.. 12:27:22 Patient received from Pre/Post Procedure Room to CCL 1 Alert and oriented. Tansferred to table in Supine position. 12:27:38 H&P Date Dictated: 03/06/2019 Within 30 days and on chart.. 12:27:40 Pre-procedure instructions explained to patient. 12:42:04 Signed procedure consent form obtained from patient. 12:42:06 Warm blankets applied, and cynthia hugger turned on for patient comfort. 12:42:07 Correct patient and procedure confirmed by team. 12:42:07 ECG and BP/O2 sat monitors applied to patient. 12:42:09 Vital chart was started 12:42:10 Baseline sample Acquired. 12:42:16 Rhythm: sinus rhythm 12:42:18 Full Disclosure recording started 12:42:22 Family in waiting room. 12:42:24 Patient NPO since Midnight. 12:42:34 Patient allergic to No known allergies 12:42:38 Is the patient allergic to Iodine/contrast media? No. 12:42:40 Is patient on blood thinner?No 12:42:42 Patient diabetic? No. 12:42:47 Snore? No 12:42:49 Sleep apnea? No 12:43:00 Patient pain scale 0/10 ?. 12:43:07 IV patent on arrival in right forearm with 0.9% NaCl at [facility]. 12:43:10 Lab results completed and on chart. 12:43:15 Right Radial & Right Groin area was prepped with chlora-prep and draped in sterile fashion 12:43:17 Alarms reviewed by R. N. 12:43:17 Sharps counted by scrub and verified by R.N. 12:43:18 Physician paged 12:43:19 Physician arrived 12:43:20 --------ALL STOP TIME OUT------ 12:43:34 Final Timeout: patient, procedure, and site verified with staff and physician. All members of the team are in agreement. 12:43:36 Right Radial & Right Groin site verified by team. 12:43:38 Oxygen 2 l/min etCO2 Nasal cannula was administered by Lucien Stout RN; used for procedure; Verbal order read back and verified. 12:43:41 Fire Safety Assessment: A--An alcohol-based skin anteseptic being used preoperatively., C--Open oxygen or nitrous oxide is being used., D--An ESU, laser, or fiber-optic light is being used. 12:43:45 Lidocaine 2% 20ml vial added to field was administered by Bunny Casillas MD; for local anesthetic; Verbal order read back and verified. 12:43:47 Physical assessment completed. ASA score P 3 - A patient with severe systemic disease as per Bunny Casillas MD. 12:43:52 Sedation plan: IV Moderate Sedation Medication:Versed, Fentanyl 12:43:53 Heparin Flush Bag (1000units/500ml NS) 2 bags added to field was administered by Bunny Casillas MD; used for procedure; Verbal order read back and verified. 12:44:00 Use device set Radial Dx or PCI 12:44:02 0.9% NaCl 100 ml/hr I.V. was administered by Lucien Stout RN; Per physician; Verbal order read back and verified. 12:44:03 ACIST Syringe (37506) opened to sterile field. 12:44:03 Medline Cath Pack ([id number]) opened to sterile field. 12:44:04 Bag Decanter (2002) opened to sterile field. 12:44:04 ACIST Hand Control (33594) opened to sterile field. 12:44:04 ACIST Manifold (35245) opened to sterile field. 12:44:05 Tegaderm 4 x 4 (1626W) opened to sterile field. 12:44:08 MBrace Wrist Support ([id number]) opened to sterile field. 12:44:10 EMERALD Guide Wire (502-300) opened to sterile field. 12:44:10 SHEATH 6FR RAIN (0762685) opened to sterile field. 12:44:14 Radial Cocktail (Verapamil 2mg/Nitro 400mcg/Heparin 1500units) 1 syringe I.A. was administered by Bunny Casillas MD; for vasodilation; Verbal order read back and verified. 12:44:23 Versed 1 mg I.V. was administered by Lucien Stout RN; for sedation; Verbal order read back and verified. 12:44:28 Fentanyl 50 mcg I.V. was administered by Lucien Stout RN; for sedation; Verbal order read back and verified. 12:48:31 Versed 1 mg I.V. was administered by Lucien Stout RN; for sedation; Verbal order read back and verified. 12:48:35 Fentanyl 50 mcg I.V. was administered by Lucien Stout RN; for sedation; Verbal order read back and verified. 12:51:15 Versed 1 mg I.V. was administered by Lucien Stout RN; for sedation; Verbal order read back and verified. 12:51:24 Fentanyl 50 mcg I.V. was administered by Lucien Stout RN; for sedation; Verbal order read back and verified. 12:56:29 Procedure started. 12:56:50 Local anesthetic to right radial artery with Lidocaine 2% by Bunny Casillas MD.INITIAL ACCESS ONLY 12:58:05 A 6 Fr Short sheath was inserted into the Right Radial artery 12:58:31 J wire advanced. 12:59:37 A DIAGNOSTIC [place] 110cm 5 Fr catheter (430185) was advanced over the wire and used for Procedure. 12:59:42 LV angiography performed. 13:00:34 EF : 55 % 13:00:42 LCA angiography performed. 13:02:25 RCA angiography performed. 13:02:30 Catheter removed. 13:02:31 Proceeding to intervention. 13:02:58 6 Fr xblad3.5 guide catheter was inserted over the wire 13:03:57 GUIDE 6FR XBLAD 3.5 catheter ([id number]) opened to sterile field. 13:03:58 WHISPER 300cm guide wire ([id number]) opened to sterile field. 13:03:59 INFLATOR Merit BasixCompak (XB7456) opened to sterile field. 13:04:11 whisper wire advanced. 13:04:31 Heparin Bolus 4000 units I.V. was administered by Lucien Stout RN; for anticoagulation; verified with dr galdamez Verbal order read back and verified. 13:06:17 Wire advanced across lesion. 13:06:26 Integrilin (Bolus 2mg/ml) 4.5 ml I.V. was administered by Lucien Stout RN; for antiplatelet therapy; wasted 5.5 ml of vial Verbal order read back and verified. 13:07:19 Versed 1 mg I.V. was administered by Lucien Stout RN; for sedation; Verbal order read back and verified. 13:07:23 Fentanyl 50 mcg I.V. was administered by Lucien Stout RN; for sedation; Verbal order read back and verified. 13:09:44 Place stent Inflation Number: 1 A BRIAN OTW 3.0 x 12 stent ([id number]) was prepped and advanced across the 1st Diag 90. The stent was deployed at 14 TOPHER for 0:20 (min:sec) . 13:10:37 ZEPHYR REGULAR TR BAND (616689) opened to sterile field. 13:11:22 Wire redirected to lad. 13:11:27 Stent balloon re-inserted over wire. 13:11:45 Inflation number: 1 The stent balloon was then re-inflated across the Mid LAD to 6 TOPHER for 0:10 (min:sec) . 13:13:54 Balloon removed over the wire. 13:13:57 Wire removed. 13:13:57 Guide catheter removed. 13:14:08 Sheath removed intact; hemostasis achieved with Mechanical Compression to the Right Radial artery. 13:14:10 Procedure ended.(Physican Out) 13:14:23 Fluoroscopy time 04.70 minutes. 13:14:28 Fluoroscopy dose: 277 mGy 13:14:28 Flurop Dose total: 277 13:14:34 Dose Area Product 18746 mGy/cm. 13:14:40 Contrast amount:Isovue 300 95ml. 13:14:42 Maximum allowable dose exceeded? No. 13:14:43 Sharps counted by scrub and verified by R.N. 13:15:20 [place] band inflated with 10cc of air. 13:15:22 Insertion/operative site no bleeding no hematoma. 13:15:24 Post Procedure Pulses reassessed and unchanged 13:15:31 Post-procedure physical assessment completed. ASA score P 3 - A patient with severe systemic disease as per Bunny Casillas MD. 13:15:34 Post procedure rhythm: unchanged. 13:15:37 Estimated blood loss: 5 ml 13:15:47 Post procedure instruction explained to patient.Patient verbalizes understanding. 13:16:24 Procedure type changed to Cath procedure, Diagnostic procedure, LHC, LHC w/Coronaries, Sedation Charges, Moderate Sedation up to 30 minutes, PCI procedure, Coronary Stent, Coronary Stent Initial, Hemochron ACT Test 13:16:26 Procedure and supply charges have been captured, reviewed, submitted and are correct. 13:16:52 Procedure Complication : No complications 13:16:55 Vital chart was stopped 13:16:[address] [facility] Findings: MVD- PCI performed (see procedure note) 13:17:07 Report given to Pre/Post Procedure Room. 13:17:11 Patient transfered to Pre/Post Procedure Room with Stretcher. 13:17:13 Procedure ended. 13:17:13 Full Disclosure recording stopped 13:17:17 Plavix 600 mg P.O. was administered by Lucien Stout RN; for antiplatelet therapy; Verbal order read back and verified. 13:17:17 End room use (Document Last) 13:17:26 ACC-PCI Only Patient was given prescriptions, or instructed by Bunny Casillas MD to start/continue the following medications upon discharge: Plavix 13:18:41 ACT drawn and resulted at 330 seconds. (normal therapeutic range 180-240 seconds). Intervention Summary Intervention Notes Time ActionType Lesion and Equipment Action# Pressure Duration Attributes Used 13:09:44 Place stent 1st Diag BRIAN OTW 3.0 1 14 00:20 x 12 stent ([id number]) 13:11:45 Reinflate Mid LAD BRIAN OTW 3.0 1 6 00:10 stent x 12 stent balloon ([id number]) Device Usage Item Name Manufacture Quantity Catalog Hospital Part Current [facility] Lot# / Number Charge Number Stock Stock Serial# Code ACIST Syringe Acist 1 54910 431844 150310 398105 20 (95516) Aristos Logic Medline Cath Medline 1 [id number] 127971 38000 677030 5 Pack ([id number]) Bag Decanter Microtek 1 373765 47584 838447 5 (2002S) Medical Inc. ACIST Hand Acist 1 89246 101585 620149 143596 5 Control Medical (63441) Systems Inc ACIST Acist 1 81781 950873 813447 477968 5 Manifold Medical (19946) Systems Inc Tegaderm 4 x 3M 1 1626W 287516 263084 937447 5 4 (1626W) MBrace Wrist Advanced 1 140-0250-00 515843 45495 425888 5 Support Vascular (930026407) Dynamics EMERALD Guide Cardinal 1 502-455 108281 686153 129510 5 Wire Health (502455) SHEATH 6FR Cardinal 1 9759511 249909 3566382 021965 5 RAIN Health (9233246) DIAGNOSTIC Terumo 1 40-7543 908769 616741 134395 5 [place] 110cm 5 Fr catheter (964858) GUIDE 6FR Cardinal 1 72897707 869121 325350 383690 10 XBLAD 3.5 Health catheter (95210456) WHISPER 300cm Joaquin 1 [id number] 157252 971322 986578 5 guide wire Vascular (3272573GZ) INFLATOR Merit 1 KH0300 039492 978592 648496 15 [facility] Medical BasixCompak (NT3410) BRIAN OTW 3.0 Medtronic 1 [id number] 033482 6236493 964533 5 [id number] x 12 stent ([id number]) ZEPHYR Cardinal 1 694515 844347 6261102 553999 5 REGULAR TR Health BAND (629073) Signature Audit [place] Stage Time Signature Unsigned Intra-Procedure 03/06/2019 Bianca Raymond 1:20:11 PM RT(R) Intra-Procedure 03/06/2019 Lucien Stout RN 1:20:52 PM Intra-Procedure 03/06/2019 Bunny Bowles 1:21:16 PM Sherif BASSETT [id number] [place] [address]
[2019-03-06 11:12] VITALS: BP 163/82; Ht 165.1 cm; Wt 47.7 kg
[2019-03-06 11:33] LABS: BASOPHILS 0.3 % (0-2); EOSINOPHILS 0.6 % (0-7); HEMATOCRIT 45.1 % (36.0-48.0); HEMOGLOBIN 15.5 g/dL (12-16); IMMATURE GRANULOCYTES 0.2 % (0-5); MCH 32.2 pg (26.0-34.0); MCHC 34.4 g/dL (31.0-37.0); MCV 93.6 fL (80.0-100.0); MEAN PLATELET VOLUME 9.4 fL (7.4-10.4); MONOCYTES 7.3 % (2-11); NEUTROPHILS 64.6 % (40-80); PLATELET COUNT 294 10x3/uL (130-400); RBC 4.82 10x6/uL (4.00-5.40); RDW 13.4 % (11.5-14.5); WBC 8.8 10x3/uL (4.8-10.8)
[2019-03-06 11:46] LABS: ALT (SGPT) 16 U/L (10-68); CALC OSMOLALITY 282 mosm/kg (275-300); CALCIUM 9.3 mg/dL (8.5-10.1); CARBON DIOXIDE 25.1 mmol/L (21.0-32.0); CHLORIDE - SERUM 106 mmol/L (98-107); CHOL - HDL RATIO 4.8 ratio (2.3-4.1); CHOLESTEROL, TOTAL 225 mg/dL (0-200); CREATININE - SERUM 0.8 mg/dL (0.6-1.3); GLUCOSE 115 mg/dL (74-106); HDL CHOLESTEROL 47 mg/dL (32-96); LDL CHOLESTEROL 162 mg/dL (0-100); LDL-HDL RATIO 3.4 ratio (1.5-3.5); POTASSIUM - SERUM 3.8 mmol/L (3.5-5.1); SODIUM 141 mmol/L (136-145); TRIGLYCERIDE 82 mg/dL (30-200); UREA NITROGEN 15 mg/dL (7-18); eGFR NON AFRICAN AMERICAN 76 mL/min (90-120)
--- NOTE | 2019-03-06 13:30 | NUR ---
REC TO ROOM VIA STRETCHER. MONITORING INITIATED. R WRIST ZVAND CDI, NO HEMATOMA OR BLEEDING. FINGERS WARM, WIGGLES. DROWSY, VERBALLY APPROPRIATE. HR 93 SR, NIBP 127/66, RR 18, SAT 97% ON 2LNC.
--- NOTE | 2019-03-06 13:45 | NUR ---
R WRIST ZBAND CDI. NO BLEEDING/HEMATOMA. C/O NAUSEA. GAVE EMESIS BAG, AND ORDER REC FOR ZOFRAN. HR 65 NSR, BP 114/66, RR 17, SAT 96% ON 2LNC.
[2019-03-06] MEDS ORDERED: PLAVIX75 MG PO (14:04)
[2019-03-06] MEDS ORDERED: BAYER CHEWABLE81 MG PO (14:04)
--- NOTE | 2019-03-06 14:14 | NUR ---
R WRIST ZBAND CDI, NO BLEEDING/HEMATOMA.
--- NOTE | 2019-03-06 14:30 | NUR ---
R WRIST ZBAND CDI, NO BLEEDING/HEMATOMA. HR 58, RR 15, SAT 94% 2LNC. BP 94/55. DROWSY, ROUSES EASILY TO VERBAL.
--- NOTE | 2019-03-06 15:00 | NUR ---
R WRIST CDI, ZBAND WITHOUT BLEEDING/HEMATOMA. SISTERS RETURNED, ASKED WHEN PT WOULD BE READY TO DC. ADVISED ~5PM, THEY STATED THEY ARE GOING TO [facility] AND THEN WILL BE IN THE WAITING ROOM. VSS, HR SB 59, SAT 94% ON 2LNC, RR 17, BP 93/51.
--- NOTE | 2019-03-06 15:31 | NUR ---
R WRIST ZBAND CDI, NO BLEEDING/HEMATOMA. HR SB 55, BP 95/51. RR 16, SAT 97%2LNC. NO FURTHER C/O NAUSEA.
--- NOTE | 2019-03-06 16:00 | NUR ---
DION YOO CDI, NO BLEEDING/HEMATOMA. AWAKE, HAVING TURKEY SANDWICH. SISTER AT BEDSIDE. CONT MONITORING.
--- NOTE | 2019-03-06 16:15 | NUR ---
2ML AIR REMOVED FROM ZBAND. IMMEDIATE OOZING NOTED. REPLACED WITH 3ML AIR. WILL REASSESS.
--- NOTE | 2019-03-06 16:30 | NUR ---
R WRIST ZBAND CDI, NO BLEEDING/HEMATOMA. CONT MONITORING. HR SR 62, BP 106/65
--- NOTE | 2019-03-06 16:45 | NUR ---
RWRIST ZBAND NO BLEEDING/HEMATOMA. 2ML AIR REMOVED. NO BLEEDING. WILL MONITOR.
--- NOTE | 2019-03-06 17:00 | NUR ---
RWRIST REMAINS CDI W ZBAND. 1ML AIR REMOVED (TOTAL OF 3ML OUT) WILL MONITOR
--- NOTE | 2019-03-06 17:15 | NUR ---
RWRIST ZBAND WITHOUT HEMATOMA/BLEEDING. REMOVED 2ML (TOTAL OF 5ML REMOVED) WITH NO BLEEDING NOTED.
--- NOTE | 2019-03-06 17:30 | NUR ---
RWRIST ZBAND CDI, NO BLEEDING/HEMATOMA. 2ML AIR REMOVED (TOTAL OF 7ML) WITH NO BLEEDING NOTED. HR SR 70, BP 105/69. DRINKING COFFEE AND VISITING W SISTER.
--- NOTE | 2019-03-06 17:45 | NUR ---
RWRIST CDI. NO BLEEDING/HEMATOMA. ATTEMPTED TO REMOVE FURTHER AIR FROM ZBAND, IT IS COMPLETELY DEFLATED. MONITORING DISCONTINUED. IV DC WITH TIP INTACT. ASSISTED PT DRESSING.
--- NOTE | 2019-03-06 18:00 | NUR ---
ZBAND REMOVED, COVERED SITE W 4X4 AND TEGADERM. DISCHARGE INSTRUCTIONS REVIEWED INCLUDING PLAVIX PRESCRIPTION AND F/U APPOINTMENT.
--- NOTE | 2019-03-06 18:10 | NUR ---
DC HOME VIA WHEELCHAIR TO PRIVATE CAR WITH SISTERS. PT HAS ALL BELONGINGS.
--- NOTE | 2019-03-07 10:48 | HP ---
PATIENT: REINA ELIZABETH MEDICAL RECORD: [id number] ACCOUNT: [id number] LOCATION:[facility] : 54 ADMISSION DATE: 03/06/19 PCP: GURDEEP VENTURA MD HISTORY AND PHYSICAL EXAMINATION HISTORY OF PRESENT ILLNESS: A 68-year-old female with a history of coronary artery disease, status post intervention. She presented to the office initially with chest tightness and pressure. We attempted medical management; however, continued to have symptomatology. Underwent Cardiolite stress testing, which showed reversible ischemia along the anterior apex well as the inferior wall, on report no intervention in the past. She is brought in for visualization of coronary anatomy. PAST MEDICAL HISTORY: Includes; 1. History of obstructive pulmonary disease. 2. Coronary artery disease as described above. 3. Dyslipidemia. PHYSICAL EXAMINATION: GENERAL: Pleasant female in no acute distress, appears stated age. HEENT: Normocephalic, atraumatic. NECK: No JVD or bruit. HEART: Regular, II/ systolic ejection murmur. LUNGS: Good air excursion. ABDOMEN: Soft, nontender. EXTREMITIES: Pulses 2+. No edema. IMPRESSION: Continued angina with negative nuclear study in spite of medical therapy. PLAN: For angiography, intervention based on above. TRANSINT:[id number] Voice Confirmation ID: [id number] DOCUMENT ID: [id number] BRYAN DOVE MD at 1048 CC: [id number] DICTATION DATE: 03/06/19 1236 ACID CORRECTION HAND: 03/06/19 1403 DEP CLI 03/06/19 [id number] [place] [address]
--- NOTE | 2019-03-07 10:48 | OP ---
PATIENT NAME: REINA ELIZABETH MEDICAL RECORD: [id number] :54 LOCATION:D.CAT ADMISSION DATE: SURGEON: BRYAN DOVE MD DATE OF OPERATION: 03/06/2019 PROCEDURE: Left heart catheterization, selective coronary angiography, PTCA stent report, right radial approach. CATHETERS: Radial sheath, [place] catheter. We proceeded to do a PTCA stenting. Procedure is finished. FINDINGS: Left ventriculography in 30-degree GOMES view: Normal wall motion and normal systolic function. CORONARY ANATOMY: LEFT MAIN: Left main is free of disease. LAD: Has a large D1 with 90% proximal stenosis, somewhat diffuse. CIRCUMFLEX: Circumflex previously placed stenting is widely patent. RIGHT CORONARY ARTERY: Minimal luminal irregularities, no flow obstructive disease. PLAN: Intervention to the diagonal momentarily. DESCRIPTION OF PROCEDURE: 1. An XB LAD guiding catheter provided excellent guide catheter support followed by 300 cm Whisper wire was placed down the 90% stenosed D-1 at distal portion of this vessel. Stent deployed was a 3.0 x 12 drug-eluting stent up to 14 atmospheres. This showed excellent resolution of a 90% stenosed diagonal down distal portion with YENNY flow 3 distal to the stenosis. There was mild snowplowing into the LAD. Therefore, the wire withdrawn, then placed on the LAD proper and the stent balloon was used to inflate up to 6 atmospheres for approximately 30 seconds each inflation. This shows excellent resolution of the snowplowed LAD as well. Plavix was loaded in the lab, sheath closed with TR band. Integrilin was used during the case. TRANSINT:[id number] Voice Confirmation ID: [id number] DOCUMENT ID: [id number] BRYAN DOVE MD at 1048 CC: [id number] DICTATION DATE: 03/06/19 1321 POLYETHYLENE BAG MACHINE OPERATOR: 03/06/192109 DEP CLI 03/06/19 [facility] [address] [place] [address]
== END 2019-03-06 18:10 | disposition home or self-care (01) ==
LOC: D.CATH 10:51
PROVIDERS: ATTEND Internal Medicine Interventional Cardiology
DX: I25.119 Atherosclerotic heart disease of native coronary artery with unspecified angina pectoris (principal); E78.5 Hyperlipidemia, unspecified; R06.00 Dyspnea, unspecified; Z72.0 Tobacco use; R01.1 Cardiac murmur, unspecified
CPT/HCPCS: 93458; C9600

== ENCOUNTER → 2019-08-27 20:56 | Outpatient (CLI) | payer MEDICARE ==
[2019-03-06 11:12] VITALS: BMI 17.5
[~2019-08-27 20:56] MED LIST changes: +BAYER CHEWABLE81 MG PO
[2019-08-27 23:16] LABS: CHOL - HDL RATIO 3.8 ratio (2.3-4.1); LDL-HDL RATIO 2.4 ratio (1.5-3.5)
== END | disposition home or self-care (01) ==
LOC: D.LABREF 20:56
PROVIDERS: ATTEND Internal Medicine Interventional Cardiology
DX: E78.5 Hyperlipidemia, unspecified (principal)